=== PATIENT | female | born 1980 | race Caucasian/White ===

== ENCOUNTER → 2020-11-26 14:12 | Outpatient (BNVA) | payer MEDICAID, SELFPAY | PROVIDERS: PCP Internal Medicine; Referring Provider Nurse Practitioner Family; Visit Provider Nurse Practitioner Family | DX: J06.9 Acute upper respiratory infection, unspecified (principal); Z20.822 Contact with and (suspected) exposure to COVID-19 | CPT/HCPCS: 87635 ==

== ENCOUNTER → 2021-02-21 15:25 | Outpatient (BNVA) | payer MEDICAID, SELFPAY | PROVIDERS: PCP Internal Medicine; Visit Provider Internal Medicine | DX: B18.2 Chronic viral hepatitis C (principal) | CPT/HCPCS: 82105; 87902 ==

== ENCOUNTER 2021-04-22 07:36 | Outpatient (CLI) | payer MEDICAID, SELFPAY ==
--- NOTE | 2021-04-22 08:45 | US_ITS ---
WS: [id number] ULTRASOUND ABDOMEN LIMITED CLINICAL INFORMATION: chronic hep COMPARISON: None. FINDINGS: Liver Size: Mild hepatomegaly Craniocaudal length: 16.7 cm. Echogenicity: Coarse Surface nodularity: None. Mass (size and location): None. Bile ducts Intrahepatic ducts: Normal. Common bile duct diameter: 0.5 cm. Gallbladder Normal. Gallstones: None. Gallbladder sludge: None. Gallbladder wall thickening: None. Pericholecystic fluid: None. Sonographic Frederick sign: Absent. Pancreas Normal as visualized. Right kidney: Simple right renal cyst measuring 1.5 x 1.2 x 1.5 cm Hydronephrosis: None. Size: 10.1 cm x 3.8 cm x 4.0 cm. Abdominal aorta and IVC Visualized portions are normal. Ascites: None. US/US liver [id number] IMPRESSION: 1. Mild hepatomegaly measuring 16.7 CM. Slightly coarse hepatic echotexture 2. No intrahepatic biliary ductal dilatation. 3. Normal gallbladder. Normal common bile duct. 4. No hydronephrosis in right kidney. 5. Simple right renal cyst measuring 1.5 x 1.2 x 1.5 cm
== END 2021-04-22 07:37 | disposition home or self-care (01) ==
LOC: RAD 07:38
PROVIDERS: PCP Nurse Practitioner Family; Visit Provider Internal Medicine
DX: B18.2 Chronic viral hepatitis C (principal); R16.0 Hepatomegaly, not elsewhere classified; Q61.01 Congenital single renal cyst
CPT/HCPCS: 76705

== ENCOUNTER 2024-09-20 10:57 | Outpatient (CLI) | payer OTHER, SELFPAY ==
[2024-09-20 11:14] VITALS: PULSE 83; RESP 18; O2SAT 99
[2024-09-20] MEDS: albuterol 2.5 mg/3 mL Neb INHALATION (11:15)
== END 2024-09-20 10:58 | disposition home or self-care (01) ==
PROVIDERS: Visit Provider Family Medicine
DX: Z02.71 Encounter for disability determination (principal)
CPT/HCPCS: 94060; J7613

== ENCOUNTER → 2024-09-30 14:31 | Outpatient (BNVA) | payer MEDICAID, SELFPAY | PROVIDERS: Visit Provider Nurse Practitioner | DX: R89.2 Abnormal level of other drugs, medicaments and biological substances in specimens from other organs, systems and tissues (principal) | CPT/HCPCS: 80307 ==